=== PATIENT | female | born 1975 | race Caucasian/White ===

== ENCOUNTER 2020-08-20 08:30 | Day surgery (SDC) | payer OTHER, SELFPAY ==
[~2020-08-20] VITALS: Ht 165.1 cm; Wt 72.6 kg
[~2020-08-20 08:30] MED LIST: CEFAZOLIN SOD 1 GM in D5W 50 ML IV ONE
[2020-08-20 09:15] LABS: HCG,QUAL RESULT NEGATIVE (NEGATIVE)
[2020-08-20] MEDS ORDERED: ONDANSETRON HCL 4 MG/2 ML VIAL IVP ONE (10:45)
[2020-08-20] MEDS ORDERED: KETOROLAC TROMETHAMINE 30 MG VIAL IVP ONE (10:45)
[2020-08-20] MEDS ORDERED: SUGAMMADEX SODIUM 200 MG/2 ML VIAL IV ONE (10:45)
[2020-08-20] MEDS ORDERED: BUPIVACAINE /PF 0.25% 30 ML VIAL INJ ONE (10:45)
[2020-08-20] MEDS ORDERED: NS IRRIG SOLN 1000 ML IR ONE (10:45)
[2020-08-20] MEDS ORDERED: SUCCINYLCHOLINE CHLORIDE 20 MG/ML(QUELICIN) IVP ONE (10:45)
[2020-08-20] MEDS ORDERED: SEVOFLURANE 15 MIN GAS INH ONE (10:45)
[2020-08-20] MEDS ORDERED: LR 1,000 ML IV.SOLN IV ONE (10:45)
[2020-08-20] MEDS ORDERED: DEXAMETHASONE SOD PHOSPHATE 4 MG/ML VIAL IVP ONE (10:45)
[2020-08-20] MEDS ORDERED: PROPOFOL 200MG/ 20ML VIAL (DIPRIVAN) IV ONE (10:45)
[2020-08-20] MEDS ORDERED: ROCURONIUM BROMIDE 10 MG/ML (ZEMURON) IV ONE (10:45)
[2020-08-20] MEDS ORDERED: ONDANSETRON HCL 4 MG/2 ML VIAL IVP PRN (11:15)
[2020-08-20] MEDS ORDERED: METOCLOPRAMIDE HCL 10 MG/2 ML VIAL IVP PRN (11:15)
[2020-08-20] MEDS ORDERED: HYDROmorphone 1 INJ. 1 MG/ML CARTRIDGE IVP PRN ×2 (11:15)
[2020-08-20] MEDS ORDERED: MEPERIDINE HCL/PF 25 MG/ML DISP.SYRIN IVP PRN (11:15)
[2020-08-20] MEDS ORDERED: LR 1,000 ML IV SCH (11:15)
[2020-08-20] MEDS ORDERED: ONDANSETRON HCL 4 MG/2 ML VIAL IM PRN (12:45)
[2020-08-20] MEDS ORDERED: IBUPROFEN 800 MG TABLET PO PRN (12:45)
[2020-08-20] MEDS: HYDROmorphone 2 MG/ML VIAL ONE ×3 (13:05→13:15)
[2020-08-20 14:21] VITALS: BP_SYST 121
== END 2020-08-20 16:05 | disposition home or self-care (01) ==
LOC: SDS 08:30 → SMU 08:30 → SDS 16:05
PROVIDERS: ATTEND Obstetrics & Gynecology
DX: N93.9 Abnormal uterine and vaginal bleeding, unspecified (principal); N84.0 Polyp of corpus uteri; G62.9 Polyneuropathy, unspecified; D64.9 Anemia, unspecified; M06.9 Rheumatoid arthritis, unspecified; Z64.1 Problems related to multiparity; Z79.899 Other long term (current) drug therapy
CPT/HCPCS: 36415; 58563; 58661; 84703; 86886; 86900; 86901; 88305; C1727; C1819; C9399; J0330; J0690; J1100; J1170; J1885; J2405; J2704; J3490; J7060; J7120; U0003

== ENCOUNTER 2021-04-29 09:25 | Emergency (ER) | payer BC, SELFPAY ==
[~2021-04-29] VITALS: Ht 165.1 cm; Wt 79.4 kg
[2021-04-29 10:04] VITALS: BP_SYST 140
--- NOTE | 2021-04-29 10:40 | NUR ---
DR LINARES IN FOR EXAM.
[2021-04-29] MEDS ORDERED: KETOROLAC TROMETHAMINE 30 MG VIAL IM ONE (10:45)
[2021-04-29] MEDS ORDERED: MORPHINE 4 MG INJ. 4 MG/ML VIAL IM ONE (10:45)
--- NOTE | 2021-04-29 11:01 | NUR ---
PT REPORTS SHE HAS RT FLAK PAIN X 2 DAYS WORSEIING THIS AM WITH NO DYSURIA/FEVERS. REPORTS SHES HAD KIDNEY STONES BEAFORE AND FEELS THE SAME WAY. MEDICATE AD REPORTS FEELING A LOT BETTER, PT REFUSED MMORPHINE AND DR LINARES INFORMED. VSS. RESP EVEN AND UNLBAORED, ON RA @98%.
[2021-04-29 11:44] LABS: BILIRUBIN,URINE NEGATIVE (NEGATIVE); BLOOD, URINE 3+ (NEGATIVE); GLUCOSE,URINE NEGATIVE (NEGATIVE); KETONES,URINE NEGATIVE (NEGATIVE); LEUKOCYTE ESTERASE ,URINE NEGATIVE (NEGATIVE); NITRITE, URINE NEGATIVE (NEGATIVE); PH,URINE 5.5 (5.0-8.0); PROTEIN URINE 2+ (NEGATIVE); UROBILINOGEN,URINE 0.2 (0.2-1.0)
[2021-04-29 11:45] LABS: COLOR,URINE YELLOW (YELLOW)
[2021-04-29 11:46] LABS: CLARITY/URINE HAZY (CLEAR)
[2021-04-29] MEDS ORDERED: HYDR-3917 PO (11:57)
[2021-04-29 12:02] LABS: RBC,URINE >100 /HPF (0-3)
[2021-04-29 12:03] LABS: BACTERIA,URINE FEW /HPF (None Seen); MUCUS,URINE 1+ /LPF (None Seen); WBC,URINE 0-3 /HPF (0-3)
[2021-04-29] MEDS ORDERED: TAMS-11 PO (12:24)
--- NOTE | 2021-04-29 12:24 | NUR ---
Patient given written and verbal discharge instructions and verbalizes understanding. ER MD discussed with patient the results and treatment provided. Patient in stable condition. ID arm band removed. IV catheter removed intact and dressing applied, no active bleeding. Rx of NORCO, FLOMAX given. Patient educated on pain management and to follow up with PMD. Pain Scale . Opportunity for questions provided and answered. Medication side effect fact sheet provided.
[2021-04-29 13:01] VITALS: BP_SYST 128
== END 2021-04-29 12:23 | disposition home or self-care (01) ==
LOC: SED 09:25
DX: N23 Unspecified renal colic (principal); Z88.5 Allergy status to narcotic agent; Z79.899 Other long term (current) drug therapy
CPT/HCPCS: 74176; 76376; 81000; 81025; 96372; 99284; J1885

== ENCOUNTER 2021-11-05 15:07 | Emergency (ER) | payer BC ==
[~2021-11-05] VITALS: Ht 162.6 cm; Wt 77.1 kg
[~2021-11-05 15:07] MED LIST changes: -CEFAZOLIN SOD 1 GM in D5W 50 ML IV ONE; +HYDR-3917 PO; +TAMS-11 PO
--- NOTE | 2021-11-05 15:40 | NUR ---
DR. ALFONSO AT BEDSIDE.
[2021-11-05 15:41] VITALS: BP_SYST 141
--- NOTE | 2021-11-05 15:53 | NUR ---
ENDORSED PT TO CORRINE [address]RE[address]. PT HAS C/O C/P THAT RADIATED TO JAW AND MID UPPER BACK, PAIN 4/10 AT THIS TIME. PT STATES PAIN COMES AND GOES WITH KNOWN ACTION ONSET. PT ALSO C/O CHILLS, H/A, AND DRY FEELING THROAT, "LIKE THERE IS A LUMP IN IT. ". RESP E/U. EKG COMPLETED. PT DENIES N/V/D/C. SKIN WARM, CAP REFILL < 3 SECS. NO EDEMA. PT AMBULATORY.
--- NOTE | 2021-11-05 15:56 | NUR ---
PT RECEIVING CXR.
--- NOTE | 2021-11-05 16:00 | NUR ---
assumed care. 22G to RAC, labs drawn and sent. EKG done, reading NSR. vss nad wctm Addendum: 11/05/21 at 1621 by [id number] pt attached to manager cardiac cath. aox4, resp even and unlabored.
[2021-11-05 16:35] LABS: BASOPHILS % (AUTO) 0.6 % (0.0-2.0); EOSINOPHILS # (AUTO) 0.1 K/uL (0.0-0.4); EOSINOPHILS % (AUTO) 1.5 % (0.0-4.0); HEMATOCRIT 42.2 % (36-48); LYMPHOCYTES # (AUTO) 2.7 K/uL (1.0-5.5); LYMPHOCYTES % (AUTO) 44.3 % (20.5-51.5); MEAN CORPUSCULAR HEMOGLOBIN 29 pg (27-31); MEAN CORPUSCULAR HGB CONC 33 % (32-36); MEAN CORPUSCULAR VOLUME 87 fL (79.0-98.0); MONOCYTES # (AUTO) 0.4 K/uL (0.0-1.0); MONOCYTES % (AUTO) 5.9 % (1.7-9.3); NEUTROPHILS # (AUTO) 2.9 K/uL (1.8-7.7); NEUTROPHILS % (AUTO) 47.7 % (40.0-70.0); PLATELET COUNT (AUTO) 216 K/uL (130-430); RED BLOOD CELL COUNT(AUTO) 4.86 MIL/uL (4.2-6.2); RED CELL DISTRIBUTION WIDTH 15.4 % (9.0-15.0); WHITE BLOOD COUNT (AUTO) 6.1 K/uL (4.8-10.8)
[2021-11-05 16:51] LABS: ANION GAP 8 (5-15); CHLORIDE 104 mmol/L (98-107); CREATININE 0.65 mg/dL (0.55-1.30); GLUCOSE 93 mg/dL (70-99); SODIUM SERUM 140 mmol/L (136-145); UREA NITROGEN, BLOOD 11 mg/dL (8-21)
[2021-11-05 17:03] LABS: ALANINE AMINOTRANSFERASE 19 U/L (12-78); ASPARTATE AMINOTRANSFERASE 22 U/L (10-37); GFR AFRICAN AMERICAN 127 mL/min (>90); TOTAL BILIRUBIN 0.4 mg/dL (0.0-1.0)
[2021-11-05] MEDS ORDERED: IBUP-1969 PO (17:23)
[2021-11-05 18:37] VITALS: BP_SYST 131
--- NOTE | 2021-11-05 18:40 | NUR ---
DC instructions and packet given, pt verbalized understanding. IV site removed. all belongings with pt. pt is AOx4, resp even and unlabored. all questions answred. all belongings with pt. pt left er ambulatory in stable condition. vss eli.
== END 2021-11-05 18:49 | disposition home or self-care (01) ==
LOC: SED 15:07
DX: R07.89 Other chest pain (principal); M54.2 Cervicalgia; Z88.5 Allergy status to narcotic agent; Z79.899 Other long term (current) drug therapy
CPT/HCPCS: 36415; 71045; 80053; 84484; 84703; 85025; 93005; 99285